=== PATIENT | male | born 1985 | race Caucasian/White ===

== ENCOUNTER → 2023-02-15 | Outpatient (CLI) | payer OTHER, SELFPAY ==
--- NOTE | 2023-02-15 | VAS_PTH ---
PATIENT: ADOLPH OHARA LOC: [facility] U#:[id number] AGE/SX: 37/M ROOM: RE02/15/[address]: Dr. Raphael Michelle MD : [id number] BED: DIS: 02/15/2023 SPEC #: [id number] RECD: 02/15/23 15:02 STATUS: LAURIE RODNEY #: [id number] ADELAIDA: 02/15/23 00:[address]: Raphael Michelle DEPT: SURGICAL PATHOLOGY RECD BY: Elba Wilhelm ENTERED: 02/18/23 07:51 SP TYPE: VAS OTHR DR: Dr. Isrrael Marvin MD Tissues: A - Vas deferens, NOS B - Vas deferens, NOS Procedures: Surgery Specimen Level II HEADER OPERATION: Bilateral partial vasectomy PRE-OP DIAGNOSIS: Desires sterilization TISSUE SUBMITTED: A - Left vas deferens, B - Right vas deferens MICROSCOPIC DIAGNOSIS A. Left vas deferens, partial vasectomy: Completely transected segment of vas deferens, no pathologic diagnosis. B. Right vas deferens, partial vasectomy: Completely transected segment of vas deferens, no pathologic diagnosis. LILIAN:abdirahman 02/19/2023 MICROSCOPIC DESCRIPTION Slides are reviewed. GROSS DESCRIPTION A - Received is one container designated left vas deferens. The specimen consists of a tubular segment of mahoney soft tissue measuring 1.1 cm in length and 0.2 cm in diameter. The specimen is sectioned and submitted entirely in one cassette. B - Received is one container designated right vas deferens. The specimen consists of a tubular segment of mahoney soft tissue measuring 0.5 cm in length and 0.2 cm in diameter. The specimen is sectioned and submitted entirely in one cassette. / LILIAN:abdirahman 02/18/2023 TC:4 CPT: 05293 x2
== END | disposition home or self-care (01) ==
LOC: LABSPEC 02-18 07:30
PROVIDERS: PCP Family Medicine; Referring Provider Surgery; Visit Provider Surgery
DX: Z98.52 Vasectomy status (principal)
CPT/HCPCS: 88302

== ENCOUNTER → 2023-04-04 | Outpatient (CLI) | payer OTHER, SELFPAY ==
[2023-04-04 15:31] LABS: Pathologist Review Reviewed
[2023-04-05 08:48] LABS: Semen Analysis Post Vas PATH REVIEW ONLY
== END | disposition home or self-care (01) ==
PROVIDERS: PCP Family Medicine; Referring Provider Surgery; Visit Provider Surgery
DX: Z30.09 Encounter for other general counseling and advice on contraception (principal)
CPT/HCPCS: 89321

== ENCOUNTER → 2023-04-16 | Outpatient (CLI) | payer OTHER, SELFPAY ==
[2023-04-16 14:44] LABS: Semen Analysis Post Vas PATH REVIEW ONLY
[2023-04-18 10:26] LABS: Pathologist Review Reviewed
== END | disposition home or self-care (01) ==
PROVIDERS: PCP Family Medicine; Referring Provider Surgery; Visit Provider Surgery
DX: Z30.09 Encounter for other general counseling and advice on contraception (principal)
CPT/HCPCS: 89321